=== PATIENT | female | born 1990 | race American Indian/Alaskan Native ===

== ENCOUNTER 2021-12-09 12:05 | Emergency (ER) | payer OTHER ==
--- NOTE | 2021-12-09 12:58 | Emergency Department Report ---
ED Female HPI - General Chief complaint: Vaginal Bleeding Stated complaint: MISCARRAGE Source: patient, EMS Mode of arrival: Stretcher Limitations: No Limitations - History of Present Illness Initial comments: Patient is a 31-year-old female that comes to the ER from EMS. She was picked up at [facility] after having a miscarriage in the presence of their provider. They delivered product of conception. Gave her 6 of morphine. And [facility] She reports vaginal bleeding. Patient did not know she was . Complaint: vaginal bleeding -: Sudden Improves with: none Worsens with: none Are you Now?: No Associated Symptoms: vaginal bleeding - Related Data Sexually active: Yes : 5 Para: 0 Allergies Allergy/AdvReac Type Severity Reaction Status Date / Time metoclopramide [From Reglan] AdvReac Unknown Verified 12/09/21 12:20 ED Review of Systems ROS: Stated complaint: MISCARRAGE Other details as noted in HPI Comment: All other systems reviewed and negative ED Past Medical Hx - Past Medical History Previous Medical History?: No - Surgical History Past Surgical History?: No - Family History Family history: no significant - Social History Substance Use Type: Alcohol ED Physical Exam - General Limitations: No Limitations General appearance: alert, in no apparent distress - Head Head exam: Present: atraumatic, normocephalic - Eye Eye exam: Present: normal appearance - ENT ENT exam: Present: mucous membranes moist - Neck Neck exam: Present: normal inspection - Respiratory Respiratory exam: Present: normal lung sounds bilaterally. Absent: respiratory distress - Cardiovascular Cardiovascular Exam: Present: regular rate, normal rhythm. Absent: systolic murmur, diastolic murmur, rubs, gallop - GI/Abdominal GI/Abdominal exam: Present: soft, normal bowel sounds - Extremities Exam Extremities exam: Present: normal inspection - Back Exam Back exam: Present: normal inspection - Neurological Exam Neurological exam: Present: alert, oriented X3 - Psychiatric Psychiatric exam: Present: normal affect, normal mood - Skin Skin exam: Present: warm, dry, intact, normal color. Absent: rash ED Course Vital Signs 12/09/21 12/09/21 12:19 15:17 Temperature 98.3 F Pulse Rate 83 91 H Respiratory 18 14 Rate Blood Pressure 100/64 131/99 [Left] O2 Sat by Pulse 97 98 Oximetry - Reevaluation(s) Reevaluation #1: 12/09/21 17:51 To main for eval ED Medical Decision Making - Lab Data Result diagrams: 12/09/21 16:08 12/09/21 13:04 Critical care attestation.: If time is entered above; I have spent that time in minutes in the direct care of this critically ill patient, excluding procedure time. ED Disposition Clinical Impression: Vagina bleeding Disposition: 30 STILL A PATIENT Is pt being admited?: No Does the pt Need Aspirin: No Condition: Stable Referrals: DAISY ROWE MD [Other] - 3-5 Days
[2021-12-09 13:53] LABS: Hemoglobin 10.1 gm/dl (10.1-14.3); Mean Corpuscular HGB Conc 33 % (30-34); Mean Corpuscular Volume 86 fl (79-97); Platelet Count 156 K/mm3 (140-440); Red Cell Distribution Width 16.8 % (13.2-15.2)
[2021-12-09 14:12] LABS: Blood Urea Nitrogen 6 mg/dL (7-17); Calcium 8.1 mg/dL (8.4-10.2); Hemolysis Index 0
--- NOTE | 2021-12-09 14:13 | Ultrasound Report ---
ULTRASOUND PELVIS INDICATION / CLINICAL INFORMATION: Spontaneous earlier today. TECHNIQUE: Transabdominal. Duplex Color Doppler used: Yes. COMPARISON: None available FINDINGS: UTERUS: The uterus measures 15.1 cm in length. There is no intrauterine . There is significa nt thickening of the endometrium which measures approximately 4 cm. There is some vascularity within consistent with retained products of conception. RIGHT ADNEXA: No significant ovarian cyst or mass. Normal color Doppler blood flow. LEFT ADNEXA: No significant ovarian cyst or mass. Normal color Doppler blood flow. URINARY BLADDER: No significant abnormality. FREE FLUID: None. ADDITIONAL FINDINGS: None. IMPRESSION: 1. There is soft tissue density with vascularity in the endometrial cavity. With this patient's given history of spontaneous earlier today the appearance is characteristic of retained products of conception. No viable intrauterine is seen. Signer Name: Lemuel Angeles MD Signed: 12/09/2021 2:08 PM Workstation Name: [employer]
[2021-12-09 14:25] LABS: BUN/Creatinine Ratio 20
[2021-12-09 15:17] VITALS: BP 131/99
[2021-12-09] MEDS ORDERED: SODIUM CHLORIDE 0.9% 1000 ML 1,000 ML IV ONE ×2 (15:51→16:10)
[2021-12-09] MEDS ORDERED: MORPHINE 4 MG/1 ML INJ IV ONE (16:13)
[2021-12-09] MEDS ORDERED: ONDANSETRON 4 MG/2 ML INJ IV ONE (16:14)
--- NOTE | 2021-12-09 16:15 | Emergency Department Report ---
HPI - General Chief Complaint: Vaginal Bleeding PUI?: No Time Seen by Provider: 12/09/21 14:35 - HPI HPI: Patient is a 31-year-old morbidly obese female, G5, P0, last menstrual cycle unknown, but per ultrasound dates, patient was approximately 8 weeks , sent from [facility] urgent care for evaluation of vaginal bleeding. Patient states she did not know she was and had an ultrasound done today as well as confirmation of intrauterine . She states "he states he pulled out the baby" and she was typically sent here for evaluation. 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 She complains of persistent vaginal bleeding abdominal pain fatigue lightheadedness and dizziness. No nausea vomiting or fevers. Pain is constant cramping and diffuse. Pain currently 10 out of 10. Patient reports that she intermittently drinks alcohol and she chronically smokes tobacco. She denies any illicit drug usage. ED Past Medical Hx - Past Medical History Previous Medical History?: No - Surgical History Past Surgical History?: No - Family History Family history: no significant - Social History Smoking Status: Current Every Day Smoker Substance Use Type: Alcohol - Medications Home Medications: Home Medications Medication Instructions Recorded Confirmed Last Taken Type miSOPROStoL [Cytotec] 200 mcg PO QID #20 tablet 12/09/21 Unknown Rx ED Review of Systems ROS: Stated complaint: MISCARRAGE Other details as noted in HPI Comment: All other systems reviewed and negative Constitutional: malaise, weakness Eyes: denies: eye pain, eye discharge, vision change ENT: denies: ear pain, throat pain, dental pain, hearing loss, epistaxis Respiratory: denies: see HPI, cough, orthopnea, shortness of breath, SOB with exertion, SOB at rest, stridor Cardiovascular: denies: chest pain, palpitations, dyspnea on exertion, orthopnea, edema, syncope, paroxysmal nocturnal dyspnea Endocrine: no symptoms reported, see HPI, excessive sweating Gastrointestinal: abdominal pain, nausea. denies: vomiting, diarrhea, constipation, hematemesis, hematochezia Genitourinary: as per HPI, other (vaginal bleeding) Skin: denies: rash, lesions, change in color, change in hair/nails, pruritus Neurological: weakness Psychiatric: denies: anxiety, depression, auditory hallucinations, visual hallucinations, homicidal thoughts, suicidal thoughts Hematological/Lymphatic: denies: easy bleeding, easy bruising, swollen glands Physical Exam - Physical Exam Vital Signs: Vital Signs 12/09/21 12/09/21 12:19 15:17 Temperature 98.3 F Pulse Rate 83 91 H Respiratory 18 14 Rate Blood Pressure 100/64 131/99 [Left] O2 Sat by Pulse 97 98 Oximetry General: Gen: Morbidly obese female, lying on stretcher, uncomfortable appearing, intermittently wincing, complaining of abdominal pain, mild distress secondary to pain HEENT: Normocephalic atraumatic pupils equally round and reactive to light extra ocular muscles intact sclera anicteric Neck: Full range of motion, no midline spinal tenderness palpation, no JVD, no carotid bruits, no nuchal rigidity CVS: S1-S2 regular rate and rhythm with no gallops rubs or murmurs, chest wall nontender Pulmonary: Clear to auscultation bilaterally, no wheezes rales or rhonchi Abdomen: Soft nondistended nontender no guarding or rebound tenderness, no palpable deformities or step-offs, normal active bowel sounds, no hepatosplenomegaly, no pulsatile masses : Moderate blood in vaginal vault, os is closed, no visible lacerations, no CMT, bilateral adnexal tenderness palpation on exam Extremities: No cyanosis no clubbing no edema, intact distal peripheral pulses, Integumentary: Skin normal, no petechia no purpura no abscess no lacerations no evidence of trauma no evidence of infection Neuro: Patient is awake alert and oriented to person place time situation, mentating well, cranial nerves II through XII intact, no focal neurodeficits, sensation grossly tact Psych: Calm cooperative, mood affect normal ED Course Vital Signs 12/09/21 12/09/21 12:19 15:17 Temperature 98.3 F Pulse Rate 83 91 H Respiratory 18 14 Rate Blood Pressure 100/64 131/99 [Left] O2 Sat by Pulse 97 98 Oximetry - Reevaluation(s) Reevaluation #1: 12/09/21 16:10 patient reassessed. She is very comfortable and well-appearing. She denies any worsening complaints or evolving symptoms. - Consultations Consultation #1: 12/09/21 16:58 Rotary Derrick OperatorLaurel, states no return call has been received from Dr. Dela Cruz, solderer electronic clinical quality rn. Consultation #2: 12/09/21 17:02: call received from Dr. Frey. I informed him that I have a patient who will need a D&C. Per his verbal report, he will call back to obtain HPI and further information. He is currently dealing with a obstetrics emergency. Consultation #3: 12/09/21 18:34 Dr. Frey has arrived to the ER. He will evaluate the pt in room 6, independently. RN Nick to evaluate the patient. ED Medical Decision Making - Lab Data Result diagrams: 12/09/21 16:08 12/09/21 13:04 - EKG Data When compared to previous EKG there are: no significant change - Radiology Data Radiology results: report reviewed - Medical Decision Making 31-year-old obese female, LMP unknown, , presents for evaluation of spontaneous miscarriage and found on diagnostic imaging today to have retained products of conception. Vital signs stable. Hemoglobin hematocrit stable. Patient was seen at bedside by , see patient's electronic health record for his documented impression and plan. He has written the patient for Cytotec. Patient's remains overall well-appearing and more comfortable appearing after being given analgesics here. She was discharged home and prior to discharge she was given strict verbal and written return precautions. Patient verbalized understanding agreed the plan of care. Critical care attestation.: If time is entered above; I have spent that time in minutes in the direct care of this critically ill patient, excluding procedure time. ED Disposition Clinical Impression: Vagina bleeding, Spontaneous Disposition: 01 HOME / SELF CARE / HOMELESS Is pt being admited?: No Does the pt Need Aspirin: No Condition: Stable Instructions: Managing Loss, Miscarriage, [id number] Additional Instructions: Follow up with Dr. Vann, the resident services supervisor who saw you today in the emergency department, for outpatient routine care. This is very important. He is advising that you take Cytotec, 1 tablet 4 times a day for 4 days. With this medication, you may develop severe cramping, bleeding, and nausea. Take Zofran as needed for nausea. Take ibuprofen as needed for pain. You may alternate ibuprofen with acetaminophen for additional pain management. Please observe your symptoms very carefully. Return to the nearest emergency department as soon as possible if you develop any fever of 100.4 Fahrenheit or higher, vomiting that is not improved with Zofran, inability tolerate liquids or solids, heavy vaginal bleeding associated with passage of very large clots, lightheadedness or dizziness, loss of consciousness, or if any other new worrisome symptoms develop Prescriptions: miSOPROStoL [Cytotec] 200 mcg PO QID #20 tablet Referrals: DAISY ROWE MD [Other] - 3-5 Days HUAN FREY MD [Staff Physician] - 3-5 Days
[2021-12-09 16:47] LABS: Basophils % (Auto) 0.4 % (0.0-1.8); Eosinophils # (Auto) 0.1 K/mm3 (0.0-0.4); Hematocrit 30.4 % (30.3-42.9); Hemoglobin 9.8 gm/dl (10.1-14.3); Lymphocytes # (Auto) 1.6 K/mm3 (1.2-5.4); Lymphocytes % (Auto) 19.5 % (13.4-35.0); Mean Corpuscular HGB Conc 32 % (30-34); Mean Corpuscular Volume 86 fl (79-97); Monocytes # (Auto) 0.7 K/mm3 (0.0-0.8); Monocytes % (Auto) 8.7 % (0.0-7.3); Platelet Count 140 K/mm3 (140-440); Red Blood Count 3.52 M/mm3 (3.65-5.03); Red Cell Distribution Width 17.2 % (13.2-15.2)
--- NOTE | 2021-12-09 18:46 | Consultation ---
History of Present Illness Consult date: 12/09/21 Reason for consult: other (miscarriage/ vaginal bleeding) Past History Past Medical History: no pertinent history Medications and Allergies Allergies Allergy/AdvReac Type Severity Reaction Status Date / Time metoclopramide [From Reglan] AdvReac Unknown Verified 12/09/21 12:20 Home Medications Medication Instructions Recorded Confirmed Last Taken Type miSOPROStoL [Cytotec] 200 mcg PO QID #20 tablet 12/09/21 Unknown Rx Review of Systems All systems: negative - Vital Signs Vital signs: Vital Signs Temp Pulse Resp BP Pulse Ox 98.3 F 83 18 100/64 97 12/09/21 12:19 12/09/21 12:19 12/09/21 12:19 12/09/21 12:19 12/09/21 12:19 Temp Pulse Resp BP Pulse Ox 98.3 F 91 H 14 131/99 98 12/09/21 12:19 12/09/21 15:17 12/09/21 15:17 12/09/21 15:17 12/09/21 15:17 - Physical Exam Lungs: Positive: Normal air movement Abdomen: Positive: normal appearance Genitourinary (Female): Positive: normal external genitalia, normal perenium Vagina: Positive: other (There was a fully formed placenta in k basin by the bedside. Patient was not actively bleeding.) Extremities: Positive: normal Deep Tendon Reflex Grade: Normal +2 Results Result Diagrams: 12/09/21 16:08 12/09/21 13:04 Abnormal lab results 12/09/21 12/09/21 12/09/21 Range/Units 13:04 13:04 13:04 RBC 3.60 L (3.65-5.03) M/mm3 Hgb (10.1-14.3) gm/dl RDW 16.8 H (13.2-15.2) % [place] % (Auto) (0.0-7.3) % Seg Neutrophils % (40.0-70.0) % Sodium 133 L (137-145) mmol/L Carbon Dioxide 19 L (22-30) mmol/L BUN 6 L (7-17) mg/dL Creatinine 0.3 L (0.6-1.2) mg/dL Calcium 8.1 L (8.4-10.2) mg/dL HCG, Quant 21055 H (0-4) mIU/mL 12/09/21 Range/Units 16:08 RBC 3.52 L (3.65-5.03) M/mm3 Hgb 9.8 L (10.1-14.3) gm/dl RDW 17.2 H (13.2-15.2) % [place] % (Auto) 8.7 H (0.0-7.3) % Seg Neutrophils % 70.4 H (40.0-70.0) % Sodium (137-145) mmol/L Carbon Dioxide (22-30) mmol/L BUN (7-17) mg/dL Creatinine (0.6-1.2) mg/dL Calcium (8.4-10.2) mg/dL HCG, Quant (0-4) mIU/mL All other labs normal. Ultrasound: report reviewed, other (No definite retained products.) Assessment and Plan - Patient Problems (1) Miscarriage Current Visit: Yes Status: Acute Plan to address problem: May continue as an outpatient. Take cytotec po 200mcg tid x 4 days. Script on file.
== END 2021-12-09 20:15 | disposition home or self-care (01) ==
LOC: ED 12:05
DX: O03.9 Complete or unspecified spontaneous abortion without complication (principal); F17.290 Nicotine dependence, other tobacco product, uncomplicated
CPT/HCPCS: 36415; 76856; 80048; 84702; 85025; 85027; 86900; 86901; 88305; 96361; 96374; 96375; 99284; J2270; J2405; J7030